=== PATIENT | female | born 1955 | race Caucasian/White ===

== ENCOUNTER → 2016-09-09 | Outpatient (CLI) | payer OTHER ==
[~2016-09-09] MED LIST: AMBIEN 10 MG TA10 MG PO; AMOXICILLIN875 MG PO; AMRIX15 MG PO; CENTRUM COMPLE1 EACH PO; CLONIDINE0.1 PO; DIAZEPAM 10 MG10 M1 PO; DOXYCYCLINE 10100 M1 PO; EXALGO12 MG PO; FLAGYL500 MG PO; HYDROMORPHONE E16 MG PO; HYDROXYZINE HCL10 M1 PO; K-DUR 20 MEQ T20 MEQ PO; LANSOPRAZOLE30 MG PO; LEVORPHANOL TART2 MG PO; LEVOTHYROXIN0.025 MG PO; LEVOTHYROXINE 0.1 MG PO; LIPITOR10 MG PO; LUNESTA3 MG PO; NAPROSYN500 MG PO; NEURONTIN 300M300 M2 PO; NORCO 10-325 T1 EACH PO; ONDANSETRON ODT8 MG SUBLING; OPIUM TINC10 MG/1 M1 PO; OXYCODONE HCL10 M1 PO; PERCOCET 5-3251 EACH PO; PRAZOSIN 1 MG CA1 M1 PO; PROMETHAZI6.25 MG/2 GT; PROMS25 WY RECTAL; SPIRIVA INH; SYMBICORT160 MCG/4. INH; TOPROL XL50 MG PO; TRANSDERM-SCO1 PATC1 TD; VITAMIN B122500 MC1 PO; VITAMIN D3 COM1 EACH PO
--- NOTE | ~2016-09-09 | CNG ---
[facility] [place] [address] CYTO-NONGYN REPORT PROCEDURE Name: KATHY CAMILO Room #: REG [facility]#: [id number] Admission: 09/09/16 Date of : 59 Discharge: Report #: [id number] Path Case #: [id number] CYTOPATHOLOGY REPORT COLLECTION DATE: 09/09/2016 RECEIVED DATE: 09/09/2016 SUBMITTING PHYS: Dr. Neal Abraham OTHER PHYS: CLINICAL HISTORY: Not provided. SPECIMEN(S) RECEIVED: A.Bronchial brushings, RUL B.Bronchial brush rinse, RUL C.Bronchoalveolar lavage, RUL * * * * * * * * * * * * FINAL DIAGNOSIS: A. Lung, RUL, Bronchial brushings: No malignant cells identified. - Sheets of reactive bronchial epithelial cells, alveolar macrophages and squamous cells identified. - Marked air-drying artifact on one of the two slides prepared limiting interpretation. B. . Lung, RUL, Bronchial brush rinse: - No malignant cells identified. - Sparsely cellular specimen consisting of reactive bronchial epithelial cells, alveolar macrophages and squamous cells. C. . Lung, RUL, Bronchoalveolar lavage: - No malignant cells identified. - Reactive bronchial epithelial cells, abundant alveolar macrophages and squamous cells identified. PATHOLOGIST: Anne Joseph M.D. REPORT ELECTRONICALLY SIGNED BY: Anne Joseph M.D. DATE/TIME: 09/12/2016 14:18 * * * * * * * * * * * * GROSS PATHOLOGY: A. Bronchial brushings, RUL: The specimen is labeled "Kathy Camilo". Four fixed slides received but 2 slides were wedged in container so tight that slides broke beyond repair in trying to get them out. B. Bronchial brush rinse, RUL: The specimen is labeled "Kathy Camilo" and consists of a brush tip in fixative. One ThinPrep slide was prepared. C. Bronchoalveolar lavage, RUL: The specimen is submitted unfixed, labeled "Kathy Camilo". Received by the Cytology Department is 15 mL of abhilash fluid. One ThinPrep slide was prepared. (clt 09.09.2016) [address] [address] CYTO-NONGYN REPORT PROCEDURE Name: KATHY CAMILO Room #: [facility].#: [id number] Admission: 09/09/16 Date of : 59 Discharge: Report #: [id number] Path Case #: [id number] SALES AND MARKETING REPRESENTATIVE(S): CHET Sherman[facility] INITIAL CPT CODE(S): A; 46202 B; 37205 C; 25362 Professional services performed by [facility] [address], [place] [address] [facility] performed by [facility] at [address] [place] [address]., [address], [place] [address]. [facility] [address] [place] [address], [address] [place] [address] PHONE: [phone] DIRECTOR: Devon Mcadams M.D. * * * END OF REPORT * * *
--- NOTE | ~2016-09-09 | P ---
[facility] [place] [address] PROCEDURE REPORT Name: TERRENCE YING Room #: REG [facility]#: [id number] Admission: 09/09/16 Attend Phys: Neal Abraham MD Discharge: Date of : 59 Report #: [id number] THIS REPORT FOR: //name// CC: Keo Abraham DATE OF SERVICE: 09/09/2016 TYPE OF REPORT: Bronchoscopy note DATE OF SERVICE: 09/09/2016. PROCEDURE: Fiberoptic bronchoscopy with cytologic brushings in the right upper lobe and bronchial lavage in the right upper lobe. INDICATION: Progressive small pulmonary nodules ASA classification, class II. PROCEDURE NOTATION: Discussed risks, benefits and alternative modes of diagnosis with the patient. She desired to proceed. After obtaining informed consent, she was brought to labor relations officer room 3 where she was placed on continuous cardiopulmonary monitoring and supplemental oxygen. She also received 4% lidocaine nebulized to anesthetize the upper respiratory tract. Once complete, she received conscious sedation, a total of 6 mg of Versed and mcg of fentanyl were titrated during the procedure to provide adequate sedation. Once accomplished, bronchoscope was passed through an oral biteblock until the vocal cords were visualized. Vocal cords moved appropriately both before and after procedure, 1% lidocaine was instilled in the vocal cords to provide topical anesthesia. Bronchoscope was then passed in the trachea, 1% lidocaine was instilled in the tracheobronchial tree bilaterally for topical anesthesia. Once complete airways were surveyed. FINDINGS: Mainstem, lobar, segmental and subsegmental bronchi were explored and appeared patent with no significant endobronchial disease or anatomic variation. There was some diffuse mucus that was relatively clear and scattered throughout the airways. Bronchoscope was then passed in the apical segment of the right upper lobe where several cytologic brushings were obtained in random subsegmental airways in the right upper lobe. Bronchial lavage was performed in this area at the end of procedure. The patient tolerated well. No noted complications. IMPRESSION: 1. Multiple pulmonary nodules. 2. Small for percutaneous biopsy, status post bronchoscopy with bronchioalveolar lavage and cytologic brushes to further evaluate. [address] [address] PROCEDURE REPORT Name: TERRENCE YING Room #: REG [facility]#: [id number] Admission: 09/09/16 Attend Phys: Neal Abraham MD Discharge: Date of : 59 Report #: [id number] PLAN: Await microbiologic and cytologic tests. <ELECTRONICALLY SIGNED> By: Neal Abraham MD 09/12/16 0904 0905 1009 Neal Abraham MD /nt
== END ==
LOC: CATH 07:11 → GI 08:59 → CATH 13:36 → GI 14:25
DX: R91.1 Solitary pulmonary nodule (principal)